=== PATIENT | female | born 1980 | race Caucasian/White ===

== ENCOUNTER 2021-07-08 16:58 | Outpatient (CLI) | payer BC | END 2021-07-08 16:59 | disposition home or self-care (01) | LOC: CSHLAB 16:58 | PROVIDERS: ATTEND Obstetrics & Gynecology | DX: Z01.812 Encounter for preprocedural laboratory examination (principal); Z20.822 Contact with and (suspected) exposure to COVID-19; N92.0 Excessive and frequent menstruation with regular cycle | CPT/HCPCS: 84703; 85027; 86850; 86900; 86901; U0003; U0005 ==

== ENCOUNTER 2021-07-29 13:41 | Emergency (ER) | payer BC ==
[2021-07-29 14:42] LABS: #Basophils 0.1 10x3/uL (0.0-0.2); #Eosinphils 0.4 10x3/uL (0.0-0.5); #Monocytes 0.4 10x3/uL (0.0-1.1); #Neutrophils 6.3 10x3/uL (1.5-8.4); %Basophils 1.1 % (0.0-2.0); %Eosinophils 4.7 % (0.0-6.0); %Lymphocytes 20.5 % (18.0-47.0); %Monocytes 4.8 % (0.0-10.0); %Neutrophils 68.7 % (40.0-75.0); Hemoglobin 7.7 g/dL (12.0-15.5); Mean Corpuscular HGB CONC 26.7 g/dL (32.0-36.0); Mean Corpuscular Hemoglobin 15.5 pg (27.0-33.0); Mean Corpuscular Volume 58.1 fl (81.6-98.3); Mean Platelet Volume 9.4 fl (7.4-10.4); Platelet Count 403 10x3/uL (150-450); RBC Distribution Width 20.7 % (11.5-14.5); Red Blood Cell (RBC) Count 4.96 10x6/uL (3.90-5.03); White Blood Cell (WBC) Count 9.1 10x3/uL (3.5-10.5)
[2021-07-29 14:47] LABS: ALT (SGPT) 11 U/L (8-55); AST (SGOT) 16 U/L (5-34); Albumin 4.4 g/dL (3.5-5.0); Alkaline Phosphatase 72 U/L (40-110); Anion Gap 13 mmol/L (10-20); BUN (Urea Nitrogen) 17 mg/dL (7.0-18.7); Bilirubin, Total 0.2 mg/dL (0.2-1.2); Calc. Creatinine Clearance 0 mL/min (70-130); Calcium 9.8 mg/dL (7.8-10.44); Carbon Dioxide 25 mmol/L (22-29); Chloride 104 mmol/L (98-107); Globulin 3.1 g/dL (2.4-3.5); Glucose 89 mg/dL (70-105); Potassium 3.6 mmol/L (3.5-5.1); Protein, Total 7.5 g/dL (6.0-8.3); Sodium 138 mmol/L (136-145)
[2021-07-29] MEDS ORDERED: Iopamidol 300 61% 100 ML VIAL FS ONE (15:05)
[2021-07-29 15:32] LABS: Anisocytosis MODERATE=16-30 cells (100X) (0-5/hpf); Poikilocytosis SLIGHT = 6-15 cells (100X) (0-5/hpf)
[2021-07-29 15:33] LABS: Hypochromia MARKED = >30 cells (100X) (0-5/hpf); Microcytosis MARKED = >30 cells (100X) (0-5/hpf); Polychromasia SLIGHT = 2-3 cells (100X) (0-2/hpf)
[2021-07-29 15:34] LABS: Ovalocytes SLIGHT = 2-5 cells (100X) (0-1/hpf); Platelet Morphology Comment Appears Increased; Target Cells SLIGHT = 2-5 cells (100X) (0-1/hpf); Tear Drops SLIGHT = 2-5 cells (100X) (0-1/hpf)
[2021-07-29] MEDS ORDERED: Ketorolac Tromethamine 30 MG/ML VIAL ONE (15:37)
[2021-07-29] MEDS ORDERED: Ondansetron PF 4 MG/2 ML Vial ONE (15:37)
== END 2021-07-29 16:21 | disposition home or self-care (01) ==
LOC: CSHERS 13:41
DX: R10.12 Left upper quadrant pain (principal); R10.32 Left lower quadrant pain
CPT/HCPCS: 74177; 80053; 85025; 96374; 96375; J1885; J2405; Q9967

== ENCOUNTER 2023-05-25 13:33 | Emergency (ER) | payer BC, SELFPAY ==
[2023-05-25] MEDS ORDERED: Ketorolac Tromethamine 30 MG (1 mL) VIAL ONE (14:28)
[2023-05-25] MEDS ORDERED: Dexamethasone 10 MG/ML VIAL ONE (14:28)
[2023-05-25 14:54] LABS: SARS-CoV-2 NAA Rapid Test Not Detected (NotDetected)
== END 2023-05-25 16:09 | disposition home or self-care (01) ==
LOC: CSHERS 13:33
DX: B34.9 Viral infection, unspecified (principal)
CPT/HCPCS: 87081; 87430; 96372; 99284; J1100; J1885

== ENCOUNTER 2024-02-27 17:29 | Emergency (ER) | payer OTHER ==
[2024-02-27] MEDS ORDERED: Ketorolac Tromethamine 30 MG (1 mL) VIAL ONE (19:22)
== END 2024-02-27 19:38 | disposition home or self-care (01) ==
LOC: CSHERS 17:29
DX: M79.672 Pain in left foot (principal)
CPT/HCPCS: 96372; 99283; J1885